=== PATIENT | female | born 1970 | race Caucasian/White ===

== ENCOUNTER 2024-05-06 08:16 | Outpatient (RCR) | payer OTHER, SELFPAY ==
--- NOTE | 2024-05-06 09:05 | PTOPEVAL1 ---
Assessment and note entered by Semaj Dias Evaluation Information Assessment Status Evaluation Diagnosis sciatica Onset 12/06/23 Subjective Information Pt. reports that pain began about 6 months ago. She reports that she began to develop increasing pain into the left side of the low back and shooting down into the left leg. She reports that pain is worst when she is sleeping. She report she is waking frequently through the night due to pain. She states that pain will also increase with long periods of standing activity. She states lifting objects from the floor will also increase her back pain. She states that grooming and bathing is difficult due to pain with bending over. She reports she enjoys fishing, and has difficulty with getting into and out of the boat. She notes that the left leg feels wobbly/weak. She reports that her goal is to get her pain to decrease in the left leg and back. Reported Pain Level Pain Score 3: Self Report Assessment PT Clinical Summary Pt. is a 53 year old female who enters the clinic with a diagnosis of sciatica. She presents with indications of interarticular hip pathology, as well as lumbar radiculopathy. She presents with impaired gait, impaired ROM, impaired flexibility, pain and functional decline, as well as hip weakness. Continued skilled PT is indicated in order to improve these areas to allow for improved IADL performance. Plan of Care Interventions Electrical Stimulation,Gait Training,Hot Pack/Cold Pack,Manual Therapy,Neuro Re-education,Patient/ Caregiver Educati,Therapeutic Activities, Therapeutic Exercise PT Services Indicated Yes Treatment Frequency and 2x/week x 10 visits Duration These treatments will address the objective and functional deficits as defined above. The patient will be advanced safely and appropriately in order for the patient to progress towards his/her prior level of function. Additional exercises will be introduced and as well as a comprehensive home exercise program upon discharge, if needed, ?to ensure carryover of functional gains achieved in the clinic. This treatment plan has been reviewed and agreement upon by the patient.
--- NOTE | 2024-05-06 09:06 | OPREHPOC ---
Outpatient Therapy Plan of Care This is a Multidisciplinary Plan of Care that may contain components documented by all disciplines (PT, OT, and ST.) PT Problem 1 PT Problem #1 Knowledge Deficit PT Goal 1 Goal Independent with a HEP addressing mobility and core stability Target Visit 2 PT Problem 2 PT Problem #2 Pain PT Goal 1 Goal Reduce pain reports to 5/10 at worst with long periods of standing. Target Visit 10 PT Problem 3 PT Problem #3 Impaired Range of Motion PT Goal 1 Goal Pt. will achieve 0-110 degrees bilateral knee joint active ROM. Pt. will achieve 110 degrees hip flexion active ROM Target Visit 10 PT Problem 4 PT Problem #4 Impaired Functional Mobil PT Goal 1 Goal Pt. will present with less than 30% limitation on the Oswestry indicating improve overall function
--- NOTE | 2024-05-11 11:56 | PCPTNOTE ---
On 05/11/24, the license pending LEAD DATABASE ADMINISTRATOR, [Rosa M David ], provided care and completed [facility] documentation on this patient. I have reviewed the license pending LEAD DATABASE ADMINISTRATOR's documentation and agree with the findings.
--- NOTE | 2024-05-29 13:47 | PCPTNOTE ---
I reviewed the License Pending Therapist's documentation and agree with the findings.
--- NOTE | 2024-06-01 17:21 | PCPTNOTE ---
On 06/01/24, the license pending OPERATIONS ACCOUNTANT, [Rosa M David ], provided care and completed [facility] documentation on this patient. I have reviewed the license pending OPERATIONS ACCOUNTANT's documentation and agree with the findings.
--- NOTE | 2024-06-15 11:42 | PCPTNOTE ---
Patient called & cancelled scheduled appointment this date.
== END 2024-06-22 13:47 | disposition home or self-care (01) ==
LOC: CHSPT 08:16
PROVIDERS: Visit Provider Family Medicine
DX: M54.30 Sciatica, unspecified side (principal)
CPT/HCPCS: 97110; 97112; 97140; 97161

== ENCOUNTER 2025-05-05 11:15 | Outpatient (CLI) | payer OTHER, SELFPAY ==
--- NOTE | ~2025-05-05 | MM_ITS ---
EXAMINATION: MM screening [facility] BI w tru HISTORY: Screening TECHNIQUE: Craniocaudal and mediolateral oblique 3-D tomosynthesis images were obtained and synthetic 2-D images were generated. CAD analysis was submitted and interpreted. COMPARISON: Comparison to multiple prior studies sequentially, with oldest reviewed study dated 01/09. BREAST PARENCHYMAL COMPOSITION: Not dense: There are scattered areas of fibroglandular density. FINDINGS: There is no evidence of suspicious mass, calcification, or architectural distortion to sugg est malignancy in either breast. There has been no suspicious interval change. IMPRESSION: 1. No mammographic evidence of malignancy. 2. Recommend routine screening mammography in one year. BI-RADS Category 1: Negative Reviewed, dictated and finalized at location A.
== END 2025-05-05 11:16 | disposition home or self-care (01) ==
LOC: MICIMG 11:16
PROVIDERS: PCP Family Medicine; Visit Provider Obstetrics & Gynecology Gynecology
DX: Z12.31 Encounter for screening mammogram for malignant neoplasm of breast (principal)
CPT/HCPCS: 77063; 77067

== ENCOUNTER 2025-06-30 10:22 | Outpatient (CLI) | payer OTHER, SELFPAY ==
--- NOTE | ~2025-06-30 | XR_ITS ---
EXAMINATION: SACRUM/COCCYX DATE: 06/30/2025 10:54 INDICATION: Chronic low back pain TECHNIQUE: Three views sacrum/coccyx FINDINGS: Comparison to CT dated 09/07/2013 There is no displaced fracture of the sacrum. The coccyx demonstrates overall normal morphology with out acute angulation.There is facet hypertrophy and disc narrowing at L5-S1. IMPRESSION: 1. No acute displaced osseous abnormality of the sacrum. Suspicion for occult or nondisplaced sacral fracture can either be evaluated with CT or MRI. 2. Grossly normal morphology to the coccyx without acute angulation. However, due to the wide range of normal variation of the coccyx, acute injury would be best evaluated by clinical examination and patient's symptoms. Reviewed, dictated and finalized at location A.
--- NOTE | ~2025-06-30 | XR_ITS ---
XR hip LT 2V w AP pelvis 06/30/2025 10:55 Indication: Left hip pain Procedure: AP pelvis and 2 views left hip Comparison: 06/30/2025 Findings: There is severe osteoarthritis of the left hip with remodeling of the joint space. Mild ost eoarthritis right hip. Pelvic rings intact. No fracture, subluxation or dislocation. There is a chond ral cyst formation in the left femoral head. Impression: 1: Severe osteoarthritis of the left hip. Reviewed, dictated and finalized at location A. Impression: 1: Severe osteoarthritis of the left hip.
--- NOTE | ~2025-06-30 | XR_ITS ---
XR heel LT min 2V 06/30/2025 10:54 Indication: Left heel pain Procedure: 2 views left heel Comparison: No prior studies for comparison. Findings: Prominent calcaneal enthesophytes. No fracture, subluxation or dislocation. No fracture, weiss bluxation or dislocation. No focal soft tissue abnormality. Impression: 1: No acute bone or joint abnormality. Reviewed, dictated and finalized at location A. Impression: 1: No acute bone or joint abnormality.
== END 2025-06-30 10:23 | disposition home or self-care (01) ==
LOC: CHSIMG 10:23
PROVIDERS: PCP Family Medicine; Visit Provider Family Medicine
DX: M79.672 Pain in left foot (principal); M25.552 Pain in left hip; M16.12 Unilateral primary osteoarthritis, left hip
CPT/HCPCS: 72220; 73502; 73650